=== PATIENT | female | born 1970 | race Caucasian/White ===

== ENCOUNTER → 2017-04-17 | Outpatient (CLI) | payer OTHER ==
[~2017-04-17] MED LIST: ALPR.25 PO; HYDR-3516 PO; NAPR500 PO; OMEP20TA93 PO; OXYGENDME NAS.CANULA; XARE15TA PO; XARE20TA PO
[2017-04-17 10:58] LABS: AUTOMATED NEUTROPHIL # 3.8 TH/MM3 (1.8-7.7); BASOPHIL % 0.6 % (0.0-2.0); EOSINOPHIL # 0.1 TH/MM3 (0-0.4); EOSINOPHIL % 1.1 % (0.0-4.0); HEMATOCRIT 40.5 % (35.0-46.0); HEMO FLAGS DIFF FINAL; LYMPH % 29.4 % (9.0-44.0); LYMPHOCYTE # 1.8 TH/MM3 (1.0-4.8); MEAN CELL VOLUME 95.4 FL (80.0-100.0); MEAN CORPUSCULAR HEMOGLOBIN 32.6 PG (27.0-34.0); MEAN CORPUSCULAR HGB CONC 34.2 % (32.0-36.0); MONO % 6.7 % (0.0-8.0); NEUT % 62.2 % (16.0-70.0); PLATELET COUNT 190 TH/MM3 (150-450); RED BLOOD COUNT 4.25 MIL/MM3 (4.00-5.30); RED CELL DISTRIBUTION WIDTH 12.4 % (11.6-17.2); WHITE BLOOD COUNT 6.2 TH/MM3 (4.0-11.0)
[2017-04-17 10:59] LABS: BLOOD, URINE SMALL (NEG); GLUCOSE,URINE NEG (NEG); KETONE, URINE NEG (NEG); MUCUS URINE FEW /lpf (OCC); NITRITE,URINE NEG (NEG); PH, URINE 5.5 (5.0-8.5); SQUAMOUS EPITHELIAL CELL URINE 4 /hpf (0-5); URINE COLOR YELLOW (YELLW/STRAW)
[2017-04-17 11:12] LABS: ANION GAP 7 MEQ/L (5-15); BICARBONATE 26.4 MEQ/L (21.0-32.0); BLOOD UREA NITROGEN 21 MG/DL (7-18); CHLORIDE 106 MEQ/L (98-107); GLOMERULAR FILTRATION RATE 89 ML/MIN (>89); GLUCOSE,FASTING 87 MG/DL (74-99); SODIUM (NA) 139 MEQ/L (136-145)
[2017-04-17 11:32] LABS: BHCG SCREEN QUALITATIVE LESS THAN 1 MIU/ML (0-5)
== END ==
LOC: CPRE 09:44
PROVIDERS: ATTEND Obstetrics & Gynecology
DX: Z01.812 Encounter for preprocedural laboratory examination (principal); N92.0 Excessive and frequent menstruation with regular cycle
CPT/HCPCS: 36415; 80048; 81001; 84703; 85025

== ENCOUNTER → 2017-04-23 | Day surgery (SDC) | payer OTHER ==
[~2017-04-23] VITALS: Ht 163.8 cm; Wt 73.5 kg
[~2017-04-23] MED LIST changes: +*morphine SULFATE 8 MG/ML PERIprocedure ONLY ONE; +ACETAMINOPHEN 1000 MG/100 ML 100 ML IV ONE; -ALPR.25 PO; +APREPITANT 40 MG CAP ONE; +BUPIVACAINE/EPINEPHRINE 0.25% PF 30 ML VIAL ONE; +CHLORHEXIDINE GLUCONATE 2 % 1 PACK (2 CLOTHS) TOPICAL PRN; +DEXAMETHASONE SOD PHOS 4 MG/ML VIAL IV ONE; +DO NOT ADM ANY ANTICOAGULANT DRUGS PRN; +ESTROGENS CONJUGATED VAG CREA 15 APPL/30 GM TUBE ONE; +FAMOTIDINE 20 MG/2 ML VIAL ONE; +GLYCOPYRROLATE 1 MG/5 ML SYRINGE IV PUSH ONE; -HYDR-3516 PO; +INSULIN HUMAN REGULAR 1,000 UNITS/10 ML VIAL SQ PRN; +KETOROLAC TROMETHAMINE 30 MG/ML (IVP) VIAL IV PUSH ONE; +KETOROLAC TROMETHAMINE 60 MG/2 ML (IM) VIAL IM PRN; +LACTATED RINGER'S 1000 ML INJ 1,000 ML IV ONE; +LACTATED RINGER'S 1000 ML IV PRN; +LIDOCAINE HCL 1% PF 5 ML SYRINGE OTHER ONE; +METOPROLOL TARTRATE 25 MG TAB PO PRN; +MIDAZOLAM HCL 2 MG/2 ML VIAL IV ONE; +MORPHINE SULFATE 4 MG/ML INJ IV ONE; +NEOSTIGMINE 3 MG/3 ML SYR IV ONE; +ONDANSETRON HCL 4 MG/2 ML VIAL IV ONE; +ONDANSETRON HCL 4 MG/2 ML VIAL IV PUSH PRN; -OXYGENDME NAS.CANULA; +PHENYLEPH/NS 1000 MCG/10 ML SYR IV ONE; +POVIDONE IODINE 5% (ANTISEPSIS KIT) 4 APPLICATIONS EACH NARE PRN; +PROPOFOL 200 MG/20 ML AMP IV ONE; +ROCURONIUM INJ 50 MG/5 ML SYRINGE IV PUSH ONE; +SODIUM CHLORID 0.9% 500 ML IV PRN; -XARE15TA PO; -XARE20TA PO; +ceFAZolin 2 GM PREMIX 50 ML IV SCH; +ePHEDrine/NS 25 MG/5 ML SYR IV ONE; +oxyCODONE/ACETAMINOPHEN 5 MG/325 MG TAB PO PRN
--- NOTE | 2017-04-23 10:32 | MP ---
cc: CHANELL IBARRA DATE OF SURGERY 04/23/2017 PREOPERATIVE DIAGNOSIS Menorrhagia POSTOPERATIVE DIAGNOSIS Menorrhagia PROCEDURE Examination under anesthesia, laparoscopic-assisted vaginal hysterectomy, bilateral salpingectomy, cystoscopy. SURGEON Dr. Ibarra ANESTHESIA General endotracheal anesthesia. FLUIDS 1600 cc crystalloid ESTIMATED BLOOD LOSS 50 cc URINE OUTPUT 300 cc clear at the end of the procedure. FINDINGS A slightly enlarged uterus was noted, normal bilateral fallopian tubes, normal bilateral ovaries. PROCEDURE The patient was taken to the operating room where general anesthesia was found to be adequate. She was then prepped and draped in the normal sterile fashion in the dorsal lithotomy position. A Thomas catheter was inserted into the urinary bladder using sterile technique. A weighted speculum was placed in the vagina. A single-tooth tenaculum applied to the anterior lip of the cervix. The cervix was then dilated with Michael dilators sizes 9-14. The tenaculum was replaced with a suture and a medium V-Care uterine manipulator was then placed through the cervix. The balloon was inflated. The cups were positioned. The speculum was removed. The gloves were changed and attention was turned to the abdominal portion of the procedure. A 5-mm incision was made just above the umbilicus and a 5-mm trocar and camera were inserted into the abdomen under direct visualization. The abdomen was insufflated with approximately 3-1/2 liters of CO2 gas. 5 mm incisions were then made in the right and left lower quadrants and 5 mm trocars were inserted under direct visualization. The round ligaments were transected bilaterally with the Harmonic scalpel. The bladder was dissected off the anterior surface of the uterus and cervix using the harmonic scalpel. The fallopian tubes were transected from the broad ligaments using the harmonic scalpel bilaterally. The remaining cardinal ligaments and uterine arteries were transected bilaterally using the harmonic scalpel down to the level of the cervix. The V-Care was then used as a guide to incise the vaginal mucosa circumferentially using the harmonic scalpel. The cervix, uterus and fallopian tubes were removed vaginally. The hemostasis was noted from all of the pedicles. The pelvis was suctioned. The gas was allowed to escape. The trocars were removed. The vaginal cuff was closed in a running fashion with 0 Vicryl, vaginally. The skin incisions were closed by the assistant drafter using 4-0 Monocryl. The Thomas catheter was used to instill approximately 250 cc of saline into the urinary bladder. The Thomas catheter was removed. Cystoscopy was performed. Urine was noted to be effluxing from both of the ureteral meatuses and no bladder injury was noted. The cystoscope was removed. The Thomas catheter was replaced. The urine was noted to be slightly blood tinged, but clear and approximately 300 cc. The sponge, lap, needle and instrument counts were correct. The patient was awakened from anesthesia and transferred to the recovery room in stable condition. Pathology was uterus, cervix and bilateral fallopian tubes. MD LIBORIO Myers/BIANCA /10:11 AM /10:32 AM MTDBrenna
[2017-04-23 13:30] VITALS: BP 114/66; PULSE 79; RESP 16; TEMP 98; O2SAT 97
== END | disposition home or self-care (01) ==
LOC: HSDC 06:06
PROVIDERS: ATTEND Obstetrics & Gynecology
DX: N80.0 Endometriosis of uterus (principal); N92.0 Excessive and frequent menstruation with regular cycle; N72 Inflammatory disease of cervix uteri; N88.8 Other specified noninflammatory disorders of cervix uteri
CPT/HCPCS: 00840; 58552; 86850; 86900; 86901; 88307; J0131; J0690; J1100; J1885; J2250; J2270; J2370; J2405; J2710; J3010; J7120; J8501

== ENCOUNTER 2017-04-30 01:11 | Observation (INO) | payer OTHER ==
[2017-04-30] VITALS (8 sets, daily range): BP systolic 109–121; BP diastolic 61–79; PULSE 100–115; RESP 15–18; TEMP 96.7–99.5; O2SAT 95–99
[~2017-04-30] VITALS: Ht 167.6 cm; Wt 55.0 kg
[~2017-04-30 01:11] MED LIST changes: -*morphine SULFATE 8 MG/ML PERIprocedure ONLY ONE; -ACETAMINOPHEN 1000 MG/100 ML 100 ML IV ONE; -APREPITANT 40 MG CAP ONE; -BUPIVACAINE/EPINEPHRINE 0.25% PF 30 ML VIAL ONE; -CHLORHEXIDINE GLUCONATE 2 % 1 PACK (2 CLOTHS) TOPICAL PRN; -DEXAMETHASONE SOD PHOS 4 MG/ML VIAL IV ONE; -DO NOT ADM ANY ANTICOAGULANT DRUGS PRN; -ESTROGENS CONJUGATED VAG CREA 15 APPL/30 GM TUBE ONE; -FAMOTIDINE 20 MG/2 ML VIAL ONE; -GLYCOPYRROLATE 1 MG/5 ML SYRINGE IV PUSH ONE; -INSULIN HUMAN REGULAR 1,000 UNITS/10 ML VIAL SQ PRN; -KETOROLAC TROMETHAMINE 30 MG/ML (IVP) VIAL IV PUSH ONE; -KETOROLAC TROMETHAMINE 60 MG/2 ML (IM) VIAL IM PRN; -LACTATED RINGER'S 1000 ML INJ 1,000 ML IV ONE; -LACTATED RINGER'S 1000 ML IV PRN; -LIDOCAINE HCL 1% PF 5 ML SYRINGE OTHER ONE; -METOPROLOL TARTRATE 25 MG TAB PO PRN; -MIDAZOLAM HCL 2 MG/2 ML VIAL IV ONE; -MORPHINE SULFATE 4 MG/ML INJ IV ONE; -NEOSTIGMINE 3 MG/3 ML SYR IV ONE; -ONDANSETRON HCL 4 MG/2 ML VIAL IV ONE; -ONDANSETRON HCL 4 MG/2 ML VIAL IV PUSH PRN; -PHENYLEPH/NS 1000 MCG/10 ML SYR IV ONE; -POVIDONE IODINE 5% (ANTISEPSIS KIT) 4 APPLICATIONS EACH NARE PRN; -PROPOFOL 200 MG/20 ML AMP IV ONE; -ROCURONIUM INJ 50 MG/5 ML SYRINGE IV PUSH ONE; -SODIUM CHLORID 0.9% 500 ML IV PRN; -ceFAZolin 2 GM PREMIX 50 ML IV SCH; -ePHEDrine/NS 25 MG/5 ML SYR IV ONE; -oxyCODONE/ACETAMINOPHEN 5 MG/325 MG TAB PO PRN
[2017-04-30] MEDS ORDERED: ACETAMINOPHEN/HYDROcodone 325 MG/5 MG TAB PO PRN (02:45)
[2017-04-30] MEDS: ALPRAZolam 0.25 MG TAB PO PRN ×2 (03:31→13:58)
--- NOTE | 2017-04-30 08:59 | HHI.HP ---
HPI Service CP Hospitalists Primary Care Physician Non-Staff Admission Diagnosis Chief Complaint: Shortness of breath and cough 2 days Travel History International Travel<30 Days: No Contact w/Intl Traveler <30 Da: No Traveled to Known Affected Are: No History of Present Illness This a 47-year-old female patient with past medical history which includes menorrhagia status post laparoscopic-assisted vaginal hysterectomy with bilateral oophorectomy and cystoscopy on 03/23/[address] Ibarra. Patient does endorse feeling weak and has had limited activity after the surgery. Patient reports approximately 2 days ago she began to have shortness of breath and cough. Patient also reports associated sharp/spasm like sensation with deep breathing. She denies any lower extremity swelling. She denies history of pulmonary embolism or DVT on herself or her family. Patient also denies estrogen or hormone supplementation. CT angiogram chest reveals pulmonary embolism isolated in the right lower lobe pulmonary artery. Small left-sided effusion with bibasilar atelectatic changes. Patient denies fevers, N/V/D/C. Patient does report, "leakage," from vagina post operation. Review of Systems Constitutional: COMPLAINS OF: Fatigue, Chills, DENIES: Fever Eyes: DENIES: Blurred vision, Diplopia, Vision loss Respiratory: COMPLAINS OF: Cough, Shortness of breath, DENIES: Sputum production Cardiovascular: COMPLAINS OF: Chest pain, DENIES: Dyspnea on Exertion, Lower Extremity Edema Gastrointestinal: DENIES: Abdominal pain, Constipation, Diarrhea Genitourinary: COMPLAINS OF: Vaginal discharge Neurologic: DENIES: Abnormal gait, Headache, Localized weakness, Speech Problems Psychiatric: DENIES: Anxiety, Confusion, Depression Past Family Social History Past Medical History Menorrhagia Past Surgical History laparoscopic-assisted vaginal hysterectomy with bilateral oophorectomy and cystoscopy on 03/23/[address] Ibarra Reported Medications Omeprazole 20 Mg Tab 20 Mg PO DAILY Naprosyn (Naproxen) 500 Mg Tab 500 Mg PO BID PRN Allergies: Coded Allergies: codeine (Verified Adverse Reaction, Severe, NAUSEA, 04/29/17) Active Ordered Medications Current Medications Medications (Trade) Dose Ordered Sig/Lou Route Start Time Stop Time Status Last Admin (Xanax) 0.25 mg Q8H PRN PO 04/30/17 02:45 04/30/17 03:31 (Whitakers 5-325 Mg) 1 tab Q6H PRN PO 04/30/17 02:45 04/30/17 03:31 (Xarelto) 15 mg BID PO 04/30/17 10:00 Family History Mother has COPD Father has hypertension Social History Patient reports occasional social EtOH use Denies tobacco use Denies illicit drug use Physical Exam Vital Signs Vital Signs Date Time Temp Pulse Resp B/P (MAP) Pulse Ox O2 Delivery O2 Flow Rate FiO2 04/30/17 08:20 97 Nasal Cannula 04/30/17 04:31 18 04/30/17 04:00 98.0 115 16 110/61 (77) 96 04/30/17 03:30 94 Nasal Cannula 2.00 04/30/17 01:30 98.4 101 15 120/76 (91) 96 Physical Exam GENERAL: This is a well-nourished, well-developed patient, appears short of breath at rest and with conversation SKIN: No rashes, ecchymoses or lesions. Cool and dry. Postop laparoscopic incisions on the abdomen healing well no drainage or erythema present HEAD: Atraumatic. Normocephalic. No temporal or scalp tenderness. EYES:Extraocular motions intact. No scleral icterus. No injection or drainage. CARDIOVASCULAR: tachycardic RESPIRATORY: Clear to auscultation. Breath sounds equal bilaterally GASTROINTESTINAL: Abdomen soft, non-tender, nondistended. MUSCULOSKELETAL: Extremities without clubbing, cyanosis, or edema. No joint tenderness, effusion, or edema noted. No calf tenderness. Negative Homans sign bilaterally. NEUROLOGICAL: Awake and alert. No focal deficits appreciated. Motor and sensory grossly within normal limits. Five out of 5 muscle strength in all muscle groups. Normal speech. Imaging Last Impressions Lower Extremity Ultrasound 04/30/17 0000 Signed Impressions: Service Date/Time: Sunday, April 30, 2017 08:58 - CONCLUSION: Normal examination. Brayan Diggs MD Capmacieli VTE Risk Assessment Caprini VTE Risk Assessment: Mod/High Risk (score >= 2) Caprini Risk Assessment Model Point Value = 1 Point Value = 2 Point Value = 3 Point Value = 5 Age 41-60 Minor surgery BMI > 25 kg/m2 Swollen legs Varicose veins or History of unexplained or recurrent spontaneous Oral contraceptives or hormone replacement Sepsis (< 1 month) Serious lung disease, including pneumonia (< 1 month) Abnormal pulmonary function Acute myocardial infarction Congestive heart failure (< 1 month) History of inflammatory bowel disease Medical patient at bed rest Age 61-74 Arthroscopic surgery Major open surgery (> 45 min) Laparoscopic surgery (> 45 min) Malignancy Confined to bed (> 72 hours) Immobilizing plaster cast Central venous access Age >= 75 History of VTE Family history of VTE Factor V Leiden Prothrombin [id number] Lupus anticoagulant Anticardiolipin antibodies Elevated serum homocysteine Heparin-induced thrombocytopenia Other congenital or acquired thrombophilia Stroke (< 1 month) Elective arthroplasty Hip, pelvis, or leg fracture Acute spinal cord injury (< 1 month) Prophylaxis Regimen Total Risk Factor Score Risk Level Prophylaxis Regimen 0-1 Low Early ambulation 2 Moderate Order ONE of the following: *Sequential Compression Device (SCD) *Heparin 5000 units SQ BID 3-4 Higher Order ONE of the following medications: *Heparin 5000 units SQ TID *Enoxaparin/Lovenox 40 mg SQ daily (WT < 150 kg, CrCl > 30 mL/min) *Enoxaparin/Lovenox 30 mg SQ daily (WT < 150 kg, CrCl > 10-29 mL/min) *Enoxaparin/Lovenox 30 mg SQ BID (WT < 150 kg, CrCl > 30 mL/min) AND/OR *Sequential Compression Device (SCD) 5 or more Highest Order ONE of the following medications: *Heparin 5000 units SQ TID (Preferred with Epidurals) *Enoxaparin/Lovenox 40 mg SQ daily (WT < 150 kg, CrCl > 30 mL/min) *Enoxaparin/Lovenox 30 mg SQ daily (WT < 150 kg, CrCl > 10-29 mL/min) *Enoxaparin/Lovenox 30 mg SQ BID (WT < 150 kg, CrCl > 30 mL/min) AND *Sequential Compression Device (SCD) Assessment and Plan Problem List: (1) Pulmonary embolism ICD Codes: I26.99 - Other pulmonary embolism without acute cor pulmonale Plan: Pulmonary embolism - This a 47-year-old female patient with past medical history which includes menorrhagia status post laparoscopic-assisted vaginal hysterectomy with bilateral oophorectomy and cystoscopy on 03/23/[address] Ibarra. Patient reports she was recovering well until approximately 2 days ago when she began to have shortness of breath and cough. Patient reports persistent dry cough and shortness of breath at rest for the past two days with associated pleuritic chest pain on the left more than the right. She denies any lower extremity swelling. She has no history of pulmonary embolism or DVT. - CT angiogram chest reveals pulmonary embolism isolated in the right lower lobe pulmonary artery. Small left-sided effusion with bibasilar atelectatic changes. - Patient started on Xarelto 15 mg by mouth twice a day - Bilateral lower extremity ultrasound reviewed normal exam - 2-D echocardiogram ordered to evaluate for right heart strain - IS q1h - supplemental oxygen as needed DVT prophylaxis patient is on Xarelto Assessment and Plan Patient examined. Assessment and plan formulated with Brina Cao PA-C. I agree with the above. right lung pe's after hysterectomy. presumed provoked from immobility. given lovenox then xarelto. f/u u/s legs inc spirometer. pain control. wean oxygen. notify post commander. probably at least 3-6months rx and then decide on stopping and check hypercoag panel at that time as needed per pcp. reviewed images, diagnosis and plan with pt and Brina Olmstead Apr 30, 2017 08:59 Austin Diggs MD Apr 30, 2017 11:16
--- NOTE | 2017-04-30 09:42 | RADRPT ---
EXAM DATE/TIME: 04/30/2017 08:58 [facility] COMPARISON: No previous studies available for comparison. INDICATIONS : Pulmonary embolism. MEDICAL HISTORY : Hypercholesterolemia. Gastroesophageal reflux disease. Hiatal hernia. Anticoagulant therapy, Xarelto . SURGICAL HISTORY : section. Partial hysterectomy. Breast augmentation. Dilation and curettage. ENCOUNTER: Initial ACUITY: 2 day PAIN SCORE: 5/10 LOCATION: Bilateral legs. TECHNIQUE: Venous ultrasound of the left and right leg was performed from the inguinal ligament to the proximal calf. Real-time, color Doppler and spectral tracing, compression and augmentation techniques were us ed. FINDINGS: RIGHT LEG: There is normal compressibility of the deep venous system from the inguinal region to the proximal ca lf. No echogenic clot is seen in the lumen of the common femoral, femoral, popliteal, and posterior tibial veins. There is a normal response of the venous system to proximal and distal augmentation an d respiration. LEFT LEG: There is normal compressibility of the deep venous system from the inguinal region to the proximal ca lf. No echogenic clot is seen in the lumen of the common femoral, femoral, popliteal, and posterior tibial veins. There is a normal response of the venous system to proximal and distal augmentation an d respiration. CONCLUSION: Normal examination. Brayan Diggs MD on April 30, 2017 at 9:40 Board Certified Radiologist. This report was verified electronically.
[2017-04-30] MEDS: RIVAROXABAN 15 MG TAB PO SCH ×2 (09:53→21:01)
[2017-04-30] MEDS ORDERED: ALUMINUM/MAGNESIUM/SIMETH 30 ML CUP PO PRN (10:15)
--- NOTE | 2017-04-30 11:26 | MB ---
cc: CHANELL HERNANDEZ DATE OF CONSULTATION 04/30/2017 REASON FOR CONSULTATION This is a 47-year-old 1 para 1 who presented to the [facility] emergency room with a two day history of chest pain and cough. The patient is status post a laparoscopic assisted vaginal hysterectomy on 04/23/2017. The patient had been on oral contraceptives prior to that for heavy menstrual bleeding. The patient was found on presentation to have a pulmonary embolus on CT angiogram and has been started on Xarelto. PAST OB HISTORY Significant for one section. 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 PAST MEDICAL HISTORY She denies hypertension, diabetes or asthma. She does have a history of a hernia. PAST SURGICAL HISTORY Significant for recent: 1. Laparoscopic assisted vaginal hysterectomy. 2. section 3. D&C 4. Laminectomy SOCIAL HISTORY She denies toxic habits. MEDICATIONS She had stopped taking her postoperative pain medication. Previously had been taking Naproxen and Omeprazole. ALLERGIES SHE IS ALLERGIC TO CODEINE, IT CAUSES NAUSEA. FAMILY HISTORY Significant for COPD. PHYSICAL EXAM Her vital signs are stable. She is afebrile. HEAD, HEART, CHEST AND LUNGS: Clear to auscultation. ABDOMEN: Soft, nontender, nondistended. Her laparoscopy incisions are clean, dry and intact. PELVIC: Exam is deferred at this time. EXTREMITIES: She has no calf tenderness. No swelling. No warmth or redness. ASSESSMENT AND PLAN She is a 47-year-old 1 para 1 status post laparoscopic assisted vaginal hysterectomy on 04/23/2017 who presented to the emergency room yesterday with shortness of breath and chest pain found to have a pulmonary embolism. She has been admitted to the [facility] for anticoagulation. She has been started on Xarelto. Her hematocrit and hemoglobin are stable. She was complaining of some dysuria, so a UA C&S has been ordered. Thank you for this consultation. MD LIBORIO Myers/BIANCA /11:06 AM /11:10 AM
[2017-04-30] MEDS: PANTOPRAZOLE SODIUM 40 MG VIAL IV PUSH SCH (13:53)
[2017-04-30] MEDS: ACETAMINOPHEN/HYDROcodone 325 MG/5 MG TAB PO PRN (13:58)
[2017-04-30 14:55] LABS: BLOOD, URINE SMALL (NEG); COMMENT (UR) CULT NOT INDICATED; CULTURE IF INDICATED CULT NOT INDICATED; GLUCOSE,URINE NEG (NEG); KETONE, URINE NEG (NEG); MUCUS URINE FEW /lpf (OCC); NITRITE,URINE NEG (NEG); PH, URINE 6.5 (5.0-8.5); SQUAMOUS EPITHELIAL CELL URINE 1 /hpf (0-5); URINE COLOR YELLOW (YELLW/STRAW)
[2017-05-01] MEDS: ACETAMINOPHEN/HYDROcodone 325 MG/5 MG TAB PO PRN ×2 (00:27→13:07)
[2017-05-01 05:15] VITALS: BP 119/82; PULSE 88; RESP 18; TEMP 97.1; O2SAT 95
[2017-05-01 08:00] VITALS: BP 125/74; PULSE 90; RESP 18; TEMP 97.2; O2SAT 96
[2017-05-01] MEDS: RIVAROXABAN 15 MG TAB PO SCH ×2 (09:14→18:19)
--- NOTE | 2017-05-01 11:16 | HHI.PR ---
Subjective Remarks pt breathing easier. has periods where she would feel more sob. ambulated in hallway yesterday with PT. Objective Vitals heart reg lung air movement bilaterally abd s/nt ext no pitting. Vital Signs Date Time Temp Pulse Resp B/P (MAP) Pulse Ox O2 Delivery O2 Flow Rate FiO2 05/01/17 08:00 97.2 90 18 125/74 (91) 96 05/01/17 05:15 97.1 88 18 119/82 (94) 95 04/30/17 23:13 99.5 113 17 116/76 (89) 97 04/30/17 19:05 98.7 106 18 121/79 (93) 96 04/30/17 18:56 Nasal Cannula 2.00 04/30/17 17:06 97.9 104 16 118/69 (85) 95 04/30/17 12:00 98 Room Air 04/30/17 12:00 96.7 105 18 112/73 (86) 98 Imaging Last Impressions Lower Extremity Ultrasound 04/30/17 0000 Signed Impressions: Service Date/Time: Sunday, April 30, 2017 08:58 - CONCLUSION: Normal examination. Brayan Diggs MD A/P Problem List: (1) Pulmonary embolism ICD Codes: I26.99 - Other pulmonary embolism without acute cor pulmonale Status: Acute Plan: Pulmonary embolism - This a 47-year-old female patient with past medical history which includes menorrhagia status post laparoscopic-assisted vaginal hysterectomy with bilateral oophorectomy and cystoscopy on 03/23/[address] Ibarra. Patient reports she was recovering well until approximately 2 days ago when she began to have shortness of breath and cough. Patient reports persistent dry cough and shortness of breath at rest for the past two days with associated pleuritic chest pain on the left more than the right. She denies any lower extremity swelling. She has no history of pulmonary embolism or DVT. - CT angiogram chest reveals pulmonary embolism isolated in the right lower lobe pulmonary artery. Small left-sided effusion with bibasilar atelectatic changes. - Patient started on Xarelto 15 mg by mouth twice a day - Bilateral lower extremity ultrasound reviewed normal exam - 2-D echocardiogram ordered to evaluate for right heart strain - IS q1h - supplemental oxygen as needed Long discussion with pt. The PE seems provoked by immobility and/or surgery. She should remain on the xarelto for 6months and at that time she and her doctor can decide on stopping it. Doubt a hypercoagulable d/o but that can be ordered by pcp once the medication is stopped. will check walk test today to see if home o2 needed. cont IS at home. prn pain meds for now. will call her pcp and give this info and have close f/u. ADDENDUM: I SPOKE TO DR GARRISON'S MEDICAL STAFF AND INFORMED THEM OF HER DIAGNOSIS AND TREATMENT PLAN. I REQUESTED THEY CALL HER AND GET A F/U APPT IN NEXT 1 WEEK. I GAVE MY CONTACT NUMBER HERE AT [facility] FOR QUESTIONS. WILL GIVE PT COPY OF HER CTA. Austin Diggs MD May 01, 2017 11:16
--- NOTE | 2017-05-01 11:26 | HHI.DCPOC ---
Discharge Care Plan Diagnosis: (1) Pulmonary embolism Goals to Promote Your Health * To prevent worsening of your condition and complications * To maintain your health at the optimal level Directions to Meet Your Goals Take your medications as prescribed Follow your dietary instruction Follow activity as directed Keep your appointments as scheduled Take your immunizations and boosters as scheduled If your symptoms worsen call your PCP, if no PCP go to Urgent Care Center or Emergency Room Smoking is Dangerous to Your Health. Avoid second hand smoke Call the 24-hour hour crisis hotline for domestic abuse at Austin Diggs MD May 01, 2017 11:26
[2017-05-01] MEDS ORDERED: ALPR.25 PO (11:27)
[2017-05-01] MEDS ORDERED: HYDR-3516 PO (11:27)
[2017-05-01] MEDS ORDERED: XARE15TA PO (11:31)
[2017-05-01] MEDS ORDERED: XARE20TA PO (11:31)
[2017-05-01 11:51] VITALS: O2SAT 96
[2017-05-01 12:00] VITALS: BP 121/92; PULSE 100; RESP 19; TEMP 97.2; O2SAT 94
[2017-05-01] MEDS ORDERED: OXYGENDME NAS.CANULA (12:58)
[2017-05-01] MEDS: PANTOPRAZOLE SODIUM 40 MG VIAL IV PUSH SCH (13:06)
--- NOTE | 2017-05-01 13:49 | ECHRPT ---
Indication: SOB CONCLUSIONS Normal left ventricular size. Wall thickness is normal. The left ventricular systolic function is low normal with an estimated ejection fraction in the rang e of 50- 55%. Trace mitral valve regurgitation. BP: 109 / 67 HR: 100 Rhythm: MEASUREMENTS (Male / Female) Normal Values Technical Quality:Fair 2D ECHO LV Diastolic Diameter PLAX 4.5 cm 4.2 - 5.9 / 3.9 - 5.3 cm LV Systolic Diameter PLAX 3.5 cm IVS Diastolic Thickness 1.0 cm 0.6 - 1.0 / 0.6 - 0.9 cm LVPW Diastolic Thickness 0.7 cm 0.6 - 1.0 / 0.6 - 0.9 cm LV Relative Wall Thickness 0.4 RV Internal Dim ED PLAX 2.5 cm LA Systolic Diameter LX 3.3 cm 3.0 - 4.0 / 2.7 - 3.8 cm M-MODE Aortic Root Diameter MM 2.8 cm AV Cusp Separation MM 1.8 cm DOPPLER Mitral E Point Velocity 74.0 cm/s Mitral A Point Velocity 88.4 cm/s Mitral E to A Ratio 0.8 TR Peak Velocity 349.0 cm/s TR Peak Gradient 48.7 mmHg FINDINGS LEFT VENTRICLE Normal left ventricular size. Wall thickness is normal. The left ventricular systolic function is low normal with an estimated ejection fraction in the rang e of 50- 55%. RIGHT VENTRICLE Normal right ventricular size and systolic function. LEFT ATRIUM The left atrial size is normal. RIGHT ATRIUM The right atrial size is normal. ATRIAL SEPTUM Normal atrial septal thickness without atrial level shunting by limited color doppler interrogation. AORTA The aortic root and proximal ascending aorta are normal in size on limited imaging. MITRAL VALVE Trace mitral valve regurgitation. AORTIC VALVE Trileaflet aortic valve. No aortic valve stenosis or regurgitation. TRICUSPID VALVE Structurally normal tricuspid valve. No tricuspid valve stenosis or regurgitation. PULMONARY VALVE The pulmonary valve is not well visualized. VESSELS The inferior vena cava is normal in size. PERICARDIUM No pericardial effusion. Ezequiel Panchal MD, FACC, [id number] (Electronically Signed) Final Date:01 May 2017 13:48
[2017-05-01 15:23] VITALS: BP 123/79; PULSE 96; RESP 20; TEMP 97; O2SAT 96
== END 2017-05-01 18:36 | disposition home or self-care (01) ==
LOC: NEDDLT 01:11 → N06B 01:21 → INTOOBSV 01:21
PROVIDERS: ADMIT Hospitalist; ATTEND Hospitalist
DX: I26.99 Other pulmonary embolism without acute cor pulmonale (principal); R53.1 Weakness; R30.0 Dysuria; Z79.01 Long term (current) use of anticoagulants; Z90.710 Acquired absence of both cervix and uterus
CPT/HCPCS: 71010; 71275; 80053; 81001; 83735; 84484; 85025; 85610; 85730; 93005; 93306; 93970; 94150; 94620; 96361; 96372; 96374; 96376; 97162; 99285; C9113; G0378; G8987; G8988; J0696; J1650; J7040; Q9967

== ENCOUNTER 2017-05-05 19:15 | Observation (INO) | payer OTHER ==
[~2017-05-05] VITALS: Ht 162.6 cm; Wt 70.0 kg
[~2017-05-05 19:15] MED LIST changes: +ALPR.25 PO; +HYDR-3516 PO; -NAPR500 PO; +OXYGENDME NAS.CANULA; +XARE15TA PO; +XARE20TA PO
[2017-05-05 19:18] VITALS: BP 150/94; PULSE 88; RESP 16; TEMP 98.9; O2SAT 98
--- NOTE | 2017-05-05 21:07 | PD ---
HPI Chief Complaint: Bleeding Time Seen by Provider: 20:57 Travel History International Travel<30 days: No Contact w/Intl Traveler<30days: No Traveled to known affect area: No History of Present Illness HPI This is a 47-year-old female who underwent hysterectomy on April 23. She was diagnosed with pulmonary embolism on April 29. She was started on Xarelto. She has been having light vaginal bleeding ever since the surgery. This morning the bleeding became worse which prompted evaluation. She reports that she has been having vaginal bleeding, passing of clots, throughout the day. She has used approximately 30 pads today. She endorses some weakness and fatigue, shortness of breath. Denies any abdominal pain, fevers or chills, flank pain, nausea or vomiting. She has no other complaints at this time. PFSH Past Medical History Heart Rhythm Problems: No Cancer: No Cardiovascular Problems: No High Cholesterol: Yes Chest Pain: No Congestive Heart Failure: No Diabetes: No Diminished Hearing: No Endocrine: No Gastrointestinal Disorders: Yes GERD: Yes Genitourinary: No Hepatitis: No Hiatal Hernia: Yes Immune Disorder: No Musculoskeletal: No Neurologic: No Psychiatric: No Reproductive: Yes (BLEEDING) Respiratory: No Immunizations Current: Yes Thyroid Disease: No Ulcer: No ?: Not Dilation and Curettage (D&C): Yes Past Surgical History Abdominal Surgery: Yes (LAP PARTIAL HYSTERECTOMY) AICD: No Body Medical Devices: BREAST IMPLANTS Cardiac Surgery: No Section: Yes Ear Surgery: No Endocrine Surgery: No Eye Surgery: No Genitourinary Surgery: No Gynecologic Surgery: Yes (, BREAST AUGMENTATION) Hysterectomy: Yes (PARTIAL) Joint Replacement: No Oral Surgery: Yes (WISDOM TEETH X 4) Pacemaker: No Thoracic Surgery: No Social History Alcohol Use: No Tobacco Use: No Substance Use: No Allergies-Medications (Allergen,Severity, Reaction): Coded Allergies: codeine (Verified Adverse Reaction, Severe, NAUSEA, 05/05/17) Reported Meds & Prescriptions Reported Meds & Active Scripts Active Oxygen (O2) Device Liter LEEANNE.CANULA CONTINUOUS Oxygen Concentrator Portable Gaseous 2 L/min via Nasal Canula Continuous For 99 months Xarelto (Rivaroxaban) 20 Mg Tab 20 Mg PO DAILY Start after completing 20 days of xarelto 15mg po bid Xarelto (Rivaroxaban) 15 Mg Tab 15 Mg PO BID 20 Days Hydrocodone-Acetamin 5-325 mg (Hydrocodone/Acetaminophen) 5 Mg-325 Mg Tablet 1 Tab PO Q6HR PRN Xanax (Alprazolam) 0.25 Mg Tab 0.25 Mg PO BID PRN Reported Omeprazole 20 Mg Tab 20 Mg PO DAILY Review of Systems Except as stated in HPI: all other systems reviewed are Neg Physical Exam Narrative GENERAL: Well-nourished female in no acute distress SKIN: Warm and dry. Laparoscopic incision site noted on the abdominal wall. HEAD: Atraumatic. Normocephalic. EYES: Pupils equal and round. No scleral icterus. No injection or drainage. ENT: No nasal bleeding or discharge. Mucous membranes pink and moist. NECK: Trachea midline. No JVD. CARDIOVASCULAR: Regular rate and rhythm. No murmur appreciated. RESPIRATORY: No accessory muscle use. Clear to auscultation. Breath sounds equal bilaterally. GASTROINTESTINAL: Abdomen soft, non-tender, nondistended. Hepatic and splenic margins not palpable. MUSCULOSKELETAL: No obvious deformities. No clubbing. No cyanosis. No edema. NEUROLOGICAL: Awake and alert. No obvious cranial nerve deficits. Motor grossly within normal limits. Normal speech. PSYCHIATRIC: Appropriate mood and affect; insight and judgment normal. Data Data Last Documented VS Vital Signs Date Time Temp Pulse Resp B/P (MAP) Pulse Ox O2 Delivery O2 Flow Rate FiO2 05/05/17 21:10 77 24 100 Nasal Cannula 2.00 05/05/17 19:18 98.9 150/94 (112) Orders Orders Type And Screen (05/05/17 21:04) Complete Blood Count With Diff (05/05/17 21:04) Comprehensive Metabolic Panel (05/05/17 21:04) Act Partial Throm Time (Ptt) (05/05/17 21:04) Prothrombin Time / Inr (Pt) (05/05/17 21:04) Iv Access Insert/Monitor (05/05/17 21:04) Admit Order (Ed Use Only) (05/05/17 22:38) Consult Gynecology (05/05/17 ) Labs Laboratory Tests Test 05/05/17 21:20 White Blood Count 11.1 TH/MM3 Red Blood Count 3.96 MIL/MM3 Hemoglobin 12.6 GM/DL Hematocrit 37.3 % Mean Corpuscular Volume 94.1 FL Mean Corpuscular Hemoglobin 31.8 PG Mean Corpuscular Hemoglobin Concent 33.8 % Red Cell Distribution Width 12.6 % Platelet Count 271 TH/MM3 Mean Platelet Volume 8.7 FL Neutrophils (%) (Auto) 70.0 % Lymphocytes (%) (Auto) 22.4 % Monocytes (%) (Auto) 6.4 % Eosinophils (%) (Auto) 0.7 % Basophils (%) (Auto) 0.5 % Neutrophils # (Auto) 7.8 TH/MM3 Lymphocytes # (Auto) 2.5 TH/MM3 Monocytes # (Auto) 0.7 TH/MM3 Eosinophils # (Auto) 0.1 TH/MM3 Basophils # (Auto) 0.1 TH/MM3 CBC Comment DIFF FINAL Differential Comment Prothrombin Time 12.0 SEC Prothromb Time International Ratio 1.2 RATIO Activated Partial Thromboplast Time 37.9 SEC Blood Urea Nitrogen 24 MG/DL Creatinine 0.87 MG/DL Random Glucose 97 MG/DL Total Protein 8.3 GM/DL Albumin 3.4 GM/DL Calcium Level 9.0 MG/DL Alkaline Phosphatase 132 U/L Aspartate Amino Transf (AST/SGOT) 31 U/L Alanine Aminotransferase (ALT/SGPT) 26 U/L Total Bilirubin 0.2 MG/DL Sodium Level 137 MEQ/L Potassium Level 4.3 MEQ/L Chloride Level 102 MEQ/L Carbon Dioxide Level 26.8 MEQ/L Anion Gap 8 MEQ/L Estimat Glomerular Filtration Rate 69 ML/MIN MDM Medical Decision Making Medical Screen Exam Complete: Yes Emergency Medical Condition: Yes Medical Record Reviewed: Yes Differential Diagnosis Postoperative bleeding, hypercoagulopathy, critical anemia Narrative Course 47-year-old female who is recently placed on Xarelto secondary to pulmonary embolism, status post hysterectomy on April 23, presents with significantly worsening vaginal bleeding today. Her abdomen is soft and nontender. She is hemodynamically stable. Plan is for basic lab work. The patient's lab work has been reviewed. Her hemoglobin is 12.6 and transfusion would not be indicated. The patient is very concerned with the amount of vaginal bleeding that she has been experiencing today and does not feel comfortable going home. I discussed the case with her fire information officer Dr. Ibarra. The patient will be admitted to medicine and she will consult. Discussed the case with Dr. Roche who would like the patient admitted to Dr. Ortiz. Diagnosis Primary Impression: Excessive vaginal bleeding Admitting Information Admitting Physician Requests: Observation Yusuf Ayala May 05, 2017 21:07
--- NOTE | 2017-05-05 21:31 | PD ---
Data Data Last Documented VS Vital Signs Date Time Temp Pulse Resp B/P (MAP) Pulse Ox O2 Delivery O2 Flow Rate FiO2 05/05/17 21:10 77 24 100 Nasal Cannula 2.00 05/05/17 19:18 98.9 150/94 (112) Orders Orders Type And Screen (05/05/17 21:04) Complete Blood Count With Diff (05/05/17 21:04) Comprehensive Metabolic Panel (05/05/17 21:04) Act Partial Throm Time (Ptt) (05/05/17 21:04) Prothrombin Time / Inr (Pt) (05/05/17 21:04) Iv Access Insert/Monitor (05/05/17 21:04) Admit Order (Ed Use Only) (05/05/17 22:38) Consult Gynecology (05/05/17 ) Labs Laboratory Tests Test 05/05/17 21:20 White Blood Count 11.1 TH/MM3 Red Blood Count 3.96 MIL/MM3 Hemoglobin 12.6 GM/DL Hematocrit 37.3 % Mean Corpuscular Volume 94.1 FL Mean Corpuscular Hemoglobin 31.8 PG Mean Corpuscular Hemoglobin Concent 33.8 % Red Cell Distribution Width 12.6 % Platelet Count 271 TH/MM3 Mean Platelet Volume 8.7 FL Neutrophils (%) (Auto) 70.0 % Lymphocytes (%) (Auto) 22.4 % Monocytes (%) (Auto) 6.4 % Eosinophils (%) (Auto) 0.7 % Basophils (%) (Auto) 0.5 % Neutrophils # (Auto) 7.8 TH/MM3 Lymphocytes # (Auto) 2.5 TH/MM3 Monocytes # (Auto) 0.7 TH/MM3 Eosinophils # (Auto) 0.1 TH/MM3 Basophils # (Auto) 0.1 TH/MM3 CBC Comment DIFF FINAL Differential Comment Prothrombin Time 12.0 SEC Prothromb Time International Ratio 1.2 RATIO Activated Partial Thromboplast Time 37.9 SEC Blood Urea Nitrogen 24 MG/DL Creatinine 0.87 MG/DL Random Glucose 97 MG/DL Total Protein 8.3 GM/DL Albumin 3.4 GM/DL Calcium Level 9.0 MG/DL Alkaline Phosphatase 132 U/L Aspartate Amino Transf (AST/SGOT) 31 U/L Alanine Aminotransferase (ALT/SGPT) 26 U/L Total Bilirubin 0.2 MG/DL Sodium Level 137 MEQ/L Potassium Level 4.3 MEQ/L Chloride Level 102 MEQ/L Carbon Dioxide Level 26.8 MEQ/L Anion Gap 8 MEQ/L Estimat Glomerular Filtration Rate 69 ML/MIN MDM Supervised Visit with TEREZA: Yes Narrative Course I, Dr. Georges, have reviewed the advance practice practitioner's documentation and am in agreement, met with the patient face to face, made the diagnosis, and the medical decision making was done by me. *My assessment and Findings: Patient fairly anxious from her symptoms of bleeding while on Xarelto, she appears well hemodynamically stable and hemoglobin within normal limits. Patient was discussed with her INTERPRETIVE PROGRAM COORDINATOR by Yusuf Ayala, she recommends observation status to medicine, ultimately discussed with Dr. Albarran for admission. He is agreeable. Admitting Information Admitting Physician Requests: Observation Condition: Stable Jefry Georges MD May 05, 2017 21:31
[2017-05-05 21:58] LABS: AUTOMATED NEUTROPHIL # 7.8 TH/MM3 (1.8-7.7); BASOPHIL # 0.1 TH/MM3 (0-0.2); BASOPHIL % 0.5 % (0.0-2.0); EOSINOPHIL # 0.1 TH/MM3 (0-0.4); EOSINOPHIL % 0.7 % (0.0-4.0); HEMATOCRIT 37.3 % (35.0-46.0); HEMO FLAGS DIFF FINAL; LYMPH % 22.4 % (9.0-44.0); LYMPHOCYTE # 2.5 TH/MM3 (1.0-4.8); MEAN CELL VOLUME 94.1 FL (80.0-100.0); MEAN CORPUSCULAR HEMOGLOBIN 31.8 PG (27.0-34.0); MEAN CORPUSCULAR HGB CONC 33.8 % (32.0-36.0); MONO % 6.4 % (0.0-8.0); PLATELET COUNT 271 TH/MM3 (150-450); RED BLOOD COUNT 3.96 MIL/MM3 (4.00-5.30); RED CELL DISTRIBUTION WIDTH 12.6 % (11.6-17.2); WHITE BLOOD COUNT 11.1 TH/MM3 (4.0-11.0)
[2017-05-05 22:10] LABS: APTT (PATIENT) 37.9 SEC (24.3-30.1); INTERNATIONAL NORMALIZED RATIO 1.2 RATIO
[2017-05-05 22:15] LABS: ALT (GPT) 26 U/L (10-53)
[2017-05-05 22:16] LABS: ANION GAP 8 MEQ/L (5-15); AST (GOT) 31 U/L (15-37); BICARBONATE 26.8 MEQ/L (21.0-32.0); BLOOD UREA NITROGEN 24 MG/DL (7-18); CHLORIDE 102 MEQ/L (98-107); GLOMERULAR FILTRATION RATE 69 ML/MIN (>89); POTASSIUM 4.3 MEQ/L (3.5-5.1); SODIUM (NA) 137 MEQ/L (136-145)
[2017-05-05 22:17] LABS: ALKALINE PHOSPHATASE 132 U/L (45-117); TOTAL BILIRUBIN ADULT 0.2 MG/DL (0.2-1.0)
[2017-05-05 23:36] VITALS: BP 137/78; PULSE 89; RESP 18; O2SAT 98
[2017-05-06] VITALS (8 sets, daily range): BP systolic 111–132; BP diastolic 66–81; PULSE 77–102; RESP 16–18; TEMP 97.3–98.7; O2SAT 96–100
[2017-05-06] MEDS ORDERED: ACETAMINOPHEN/HYDROcodone 325 MG/5 MG TAB PO PRN
[2017-05-06] MEDS ORDERED: ALPRAZolam 0.25 MG TAB PO PRN
--- NOTE | 2017-05-06 00:03 | HHI.HP ---
HPI Service [facility] Hospitalists Primary Care Physician Non-Staff Admission Diagnosis vaginal bleeding Chief Complaint: vaginal bleeding with recent PE Travel History International Travel<30 Days: No Contact w/Intl Traveler <30 Da: No Traveled to Known Affected Are: No History of Present Illness This is a 47-year-old female who underwent hysterectomy on April 23,patient had been on oral contraceptives for bleeding and continued to have problem and underwent laproscopic vaginal hysterectomy. Patient went home and developed cough,SOB and chest pain . She was diagnosed with pulmonary embolism on April 29. She was started on Xarelto. Patient with exertion also had hypoxia and was started on oxygen 2 liters to be used with any exertion. She has been having light vaginal bleeding ever since the surgery. This morning the bleeding became worse which prompted evaluation. She reports that she has been having vaginal bleeding, passing of clots, throughout the day. She has used approximately 30 pads today. She endorses some weakness and fatigue, shortness of breath unsteadiness. Denies any abdominal pain, fevers or chills, flank pain, nausea or vomiting. She has no other complaints at this time. Denies any chest pain or shortness of breath. Patient will be admitted for observation. Review of Systems Constitutional: COMPLAINS OF: Fatigue Neurologic: COMPLAINS OF: Abnormal gait Other vaginal bleeding Past Family Social History Past Medical History hyperlipid,GERD,recent PE on Xarelto Past Surgical History back surgery,c section,d/c,breast augmentation Reported Medications Oxygen (O2) Device Liter LEEANNE.CANULA CONTINUOUS Oxygen Concentrator Portable Gaseous 2 L/min via Nasal Canula Continuous For 99 months Xarelto (Rivaroxaban) 20 Mg Tab 20 Mg PO DAILY Start after completing 20 days of xarelto 15mg po bid Xarelto (Rivaroxaban) 15 Mg Tab 15 Mg PO BID 20 Days Hydrocodone-Acetamin 5-325 mg (Hydrocodone/Acetaminophen) 5 Mg-325 Mg Tablet 1 Tab PO Q6HR PRN Xanax (Alprazolam) 0.25 Mg Tab 0.25 Mg PO BID PRN Reported Omeprazole 20 Mg Tab 20 Mg PO DAILY Allergies: Coded Allergies: codeine (Verified Adverse Reaction, Severe, NAUSEA, 05/05/17) Social History NS,ND Physical Exam Vital Signs Vital Signs Date Time Temp Pulse Resp B/P (MAP) Pulse Ox O2 Delivery O2 Flow Rate FiO2 05/05/17 23:36 89 18 137/78 (97) 98 Room Air 05/05/17 21:10 77 24 100 Nasal Cannula 2.00 05/05/17 19:18 98.9 88 16 150/94 (112) 98 Physical Exam GENERAL: This is a well-nourished, well-developed patient, in no apparent distress. SKIN: No rashes, ecchymoses or lesions. Cool and dry. HEAD: Atraumatic. Normocephalic. No temporal or scalp tenderness. EYES: Pupils equal round and reactive. Extraocular motions intact. No scleral icterus. No injection or drainage. ENT: Nose without bleeding, purulent drainage or septal hematoma. Throat without erythema, tonsillar hypertrophy or exudate. Uvula midline. Airway patent. NECK: Trachea midline. No JVD or lymphadenopathy. Supple, nontender, no meningeal signs. CARDIOVASCULAR: Regular rate and rhythm without murmurs, gallops, or rubs. RESPIRATORY: Clear to auscultation. Breath sounds equal bilaterally. No wheezes , rales, or rhonchi. GASTROINTESTINAL: Abdomen soft, non-tender, nondistended. No hepato-splenomegaly , or palpable masses. No guarding. MUSCULOSKELETAL: Extremities without clubbing, cyanosis, or edema. No joint tenderness, effusion, or edema noted. No calf tenderness. Negative Homans sign bilaterally. NEUROLOGICAL: Awake and alert. Cranial nerves II through XII intact. Motor and sensory grossly within normal limits. Five out of 5 muscle strength in all muscle groups. Normal speech. Laboratory Laboratory Tests Test 05/05/17 21:20 White Blood Count 11.1 Red Blood Count 3.96 Hemoglobin 12.6 Hematocrit 37.3 Mean Corpuscular Volume 94.1 Mean Corpuscular Hemoglobin 31.8 Mean Corpuscular Hemoglobin Concent 33.8 Red Cell Distribution Width 12.6 Platelet Count 271 Mean Platelet Volume 8.7 Neutrophils (%) (Auto) 70.0 Lymphocytes (%) (Auto) 22.4 Monocytes (%) (Auto) 6.4 Eosinophils (%) (Auto) 0.7 Basophils (%) (Auto) 0.5 Neutrophils # (Auto) 7.8 Lymphocytes # (Auto) 2.5 Monocytes # (Auto) 0.7 Eosinophils # (Auto) 0.1 Basophils # (Auto) 0.1 CBC Comment DIFF FINAL Differential Comment Prothrombin Time 12.0 Prothromb Time International Ratio 1.2 Activated Partial Thromboplast Time 37.9 Blood Urea Nitrogen 24 Creatinine 0.87 Random Glucose 97 Total Protein 8.3 Albumin 3.4 Calcium Level 9.0 Alkaline Phosphatase 132 Aspartate Amino Transf (AST/SGOT) 31 Alanine Aminotransferase (ALT/SGPT) 26 Total Bilirubin 0.2 Sodium Level 137 Potassium Level 4.3 Chloride Level 102 Carbon Dioxide Level 26.8 Anion Gap 8 Estimat Glomerular Filtration Rate 69 Result Diagram: 05/05/17211905/05/172119 Imaging recent lower extremity ultrasound ,CTA thorax Caprini VTE Risk Assessment Caprini VTE Risk Assessment: Mod/High Risk (score >= 2) Caprini Risk Assessment Model Point Value = 1 Point Value = 2 Point Value = 3 Point Value = 5 Age 41-60 Minor surgery BMI > 25 kg/m2 Swollen legs Varicose veins or History of unexplained or recurrent spontaneous Oral contraceptives or hormone replacement Sepsis (< 1 month) Serious lung disease, including pneumonia (< 1 month) Abnormal pulmonary function Acute myocardial infarction Congestive heart failure (< 1 month) History of inflammatory bowel disease Medical patient at bed rest Age 61-74 Arthroscopic surgery Major open surgery (> 45 min) Laparoscopic surgery (> 45 min) Malignancy Confined to bed (> 72 hours) Immobilizing plaster cast Central venous access Age >= 75 History of VTE Family history of VTE Factor V Leiden Prothrombin [id number] Lupus anticoagulant Anticardiolipin antibodies Elevated serum homocysteine Heparin-induced thrombocytopenia Other congenital or acquired thrombophilia Stroke (< 1 month) Elective arthroplasty Hip, pelvis, or leg fracture Acute spinal cord injury (< 1 month) Prophylaxis Regimen Total Risk Factor Score Risk Level Prophylaxis Regimen 0-1 Low Early ambulation 2 Moderate Order ONE of the following: *Sequential Compression Device (SCD) *Heparin 5000 units SQ BID 3-4 Higher Order ONE of the following medications: *Heparin 5000 units SQ TID *Enoxaparin/Lovenox 40 mg SQ daily (WT < 150 kg, CrCl > 30 mL/min) *Enoxaparin/Lovenox 30 mg SQ daily (WT < 150 kg, CrCl > 10-29 mL/min) *Enoxaparin/Lovenox 30 mg SQ BID (WT < 150 kg, CrCl > 30 mL/min) AND/OR *Sequential Compression Device (SCD) 5 or more Highest Order ONE of the following medications: *Heparin 5000 units SQ TID (Preferred with Epidurals) *Enoxaparin/Lovenox 40 mg SQ daily (WT < 150 kg, CrCl > 30 mL/min) *Enoxaparin/Lovenox 30 mg SQ daily (WT < 150 kg, CrCl > 10-29 mL/min) *Enoxaparin/Lovenox 30 mg SQ BID (WT < 150 kg, CrCl > 30 mL/min) AND *Sequential Compression Device (SCD) Assessment and Plan Problem List: (1) Excessive vaginal bleeding ICD Codes: N92.0 - Excessive and frequent menstruation with regular cycle Status: Acute Plan: WIRE TINNER has been notified and will see patient in consult will get pelvic ultrasound (2) Pulmonary embolism ICD Codes: I26.99 - Other pulmonary embolism without acute cor pulmonale Status: Chronic Plan: S/P PE on 04/29/17 continue Xarelto for now may need heme consult as patient having heavy bleeding Assessment and Plan labs are stable will recheck further plan as case develops Code Status full Discussed Condition With patient Victor Hugo Gordon MD May 06, 2017 00:03
[2017-05-06] MEDS ORDERED: ONDANSETRON HCL 4 MG/2 ML VIAL IV PUSH PRN (04:00)
[2017-05-06] MEDS ORDERED: DIATRIZOATE MEGLUM/DIATRIZOATE SOD 9 ML CUP PO ONE ×2 (04:23→04:45)
--- NOTE | 2017-05-06 05:37 | MB ---
cc: CHANELL HERNANDEZ DATE OF CONSULTATION 05/06/2017 HISTORY OF PRESENT ILLNESS The patient is 47 years old, para 1, status post laparoscopic-assisted vaginal hysterectomy on 04/23/2017 with a postoperative pulmonary embolism on 04/30/2017. She presents on 05/05/2017 with vaginal bleeding. She is currently on Xarelto 15 mg p.o. b.i.d. The patient did state that she went and worked at the [employer] this weekend. She followed up with her doctor appointment. She has been using supplemental oxygen as needed. PAST OB HISTORY Significant for one . PAST [employer]IC HISTORY She had heavy menstrual bleeding which was the indication for her laparoscopic hysterectomy. PAST MEDICAL HISTORY She denies diabetes, hypertension or asthma. PAST SURGICAL HISTORY 1. She has had a D&C. 2. . 3. Laminectomy. 4. Breast implants. 5. Laparoscopic-assisted vaginal hysterectomy. SOCIAL HISTORY She denies toxic habits. PHYSICAL EXAMINATION VITAL SIGNS: On physical exam her vital signs are stable. She is afebrile. HEAD, HEART, CHEST, LUNG: Exams are within normal limits. ABDOMEN: Soft, nontender, nondistended. Her laparoscopic incisions are clean, dry and intact. PELVIC EXAM: The patient is passing small clots hourly about the size of a quarter. EXTREMITY EXAM: No edema, cyanosis, clubbing. Nontender calves. ASSESSMENT AND PLAN She is 47 years old, 1, status post laparoscopic-assisted vaginal hysterectomy with a postoperative pulmonary embolism, presents postoperative day 12 with vaginal bleeding on anticoagulation. Her hemoglobin/hematocrit is 12/37, platelets of 271. PT/PTT is 12/37. We will repeat a CBC at 06:[address] of the pelvis with contrast. MD LIBORIO Myers/DIANE /4:20 AM /5:25 AM
[2017-05-06] MEDS ORDERED: LACTATED RINGER'S 1000 ML INJ 1,000 ML IV SCH (05:45)
[2017-05-06 06:17] LABS: AUTOMATED NEUTROPHIL # 8.3 TH/MM3 (1.8-7.7); BASOPHIL # 0.1 TH/MM3 (0-0.2); BASOPHIL % 0.5 % (0.0-2.0); EOSINOPHIL # 0.1 TH/MM3 (0-0.4); EOSINOPHIL % 0.9 % (0.0-4.0); HEMO FLAGS DIFF FINAL; LYMPH % 19.8 % (9.0-44.0); LYMPHOCYTE # 2.3 TH/MM3 (1.0-4.8); MEAN CORPUSCULAR HEMOGLOBIN 32.3 PG (27.0-34.0); MONO % 5.8 % (0.0-8.0); PLATELET COUNT 276 TH/MM3 (150-450); RED BLOOD COUNT 3.68 MIL/MM3 (4.00-5.30); RED CELL DISTRIBUTION WIDTH 12.6 % (11.6-17.2); WHITE BLOOD COUNT 11.4 TH/MM3 (4.0-11.0)
[2017-05-06] MEDS ORDERED: IOHEXOL 350 MG/ML 10 ML VIAL (for RAD DIAG) IVCONTRAST ONE (06:54)
--- NOTE | 2017-05-06 07:02 | RADRPT ---
EXAM DATE/TIME: 05/06/2017 06:51 [facility] COMPARISON: No previous studies available for comparison. INDICATIONS : Vaginal bleeding post hysterectomy. Postoperative pulmonary embolism. IV CONTRAST: 96 cc Omnipaque 350 (iohexol) IV ORAL CONTRAST: Prescribed oral contrast ingested. RADIATION DOSE: 12.75 CTDIvol (mGy) MEDICAL HISTORY : Gastroesophageal reflux disease. Cardiovascular disease SURGICAL HISTORY : section. Hysterectomy. breast augmentation ENCOUNTER: Initial ACUITY: 3 days PAIN SCALE: 3/10 LOCATION: pelvis TECHNIQUE: Volumetric scanning of the pelvis was performed. Using automated exposure control and adjustment of t he mA and/or kV according to patient size, radiation dose was kept as low as reasonably achievable to obtain optimal diagnostic quality images. DICOM format image data is available electronically for review and comparison. FINDINGS: BOWEL/MESENTERY: The visualized small and large bowel demonstrate no acute abnormality. There is no free fluid. BLADDER: There is no wall thickening or mass. RETROPERITONEUM: There is no aneurysm or lymphadenopathy. REPRODUCTIVE: The patient is status post hysterectomy with apparent post surgical changes in the pelvis. There is a small amount of gas and fluid present posterior to the bladder. INGUINAL: There is no lymphadenopathy or hernia. MUSCULOSKELETAL: Within normal limits for patient age. CONCLUSION: Small amount of gas and fluid in the lower pelvis most consistent with postoperative change from recent hysterectomy. Agustin Campos MD on May 06, 2017 at 6:58 Board Certified Radiologist. This report was verified electronically.
[2017-05-06] MEDS: DOCUSATE SODIUM 100 MG CAP PO SCH ×2 (09:00→21:00)
[2017-05-06] MEDS: ONDANSETRON HCL 4 MG/2 ML VIAL IV PUSH PRN ×2 (09:07→16:52)
[2017-05-06] MEDS: RIVAROXABAN 15 MG TAB PO SCH ×2 (10:33→11:19)
[2017-05-06] MEDS: PANTOPRAZOLE SOD 20 MG DELAYED RELEASE TAB PO SCH ×2 (10:34→11:19)
--- NOTE | 2017-05-06 11:29 | HHI.PR ---
Subjective Remarks Pt c/o severe nausea and vomiting. Some improvement with zofran. Pt also with copious diarrhea observe by nursing. Objective Vitals Vital Signs Date Time Temp Pulse Resp B/P (MAP) Pulse Ox O2 Delivery O2 Flow Rate FiO2 05/06/17 09:00 97.3 78 16 111/66 (81) 99 05/06/17 05:16 96 21 05/06/17 04:45 98.2 88 18 119/72 (88) 96 05/06/17 01:36 16 05/06/17 01:00 Nasal Cannula 2.00 05/06/17 00:21 98.7 102 18 132/75 (94) 98 05/06/17 00:06 05/05/17 23:36 89 18 137/78 (97) 98 Room Air 05/05/17 21:10 77 24 100 Nasal Cannula 2.00 05/05/17 19:18 98.9 88 16 150/94 (112) 98 Result Diagram: 05/06/17 0551 05/05/172119 Imaging recent lower extremity ultrasound ,CTA thorax Last Impressions Pelvis CT 05/06/17 0000 Signed Impressions: Service Date/Time: Saturday, May 06, 2017 06:51 - CONCLUSION: Small amount of gas and fluid in the lower pelvis most consistent with postoperative change from recent hysterectomy. Agustin Campos MD Objective Remarks GENERAL: This is a well-nourished, well-developed patient, in no apparent distress. CARDIOVASCULAR: Regular rate and rhythm without murmurs, gallops, or rubs. RESPIRATORY: Clear to auscultation. Breath sounds equal bilaterally. No wheezes , rales, or rhonchi. GASTROINTESTINAL: Abdomen soft, non-tender, nondistended. Normal active bowel sounds MUSCULOSKELETAL: Extremities without clubbing, cyanosis, or edema. NEURO: Alert & Oriented x4 to person, place, time, situation. Moves all ext x4 A/P Problem List: (1) Excessive vaginal bleeding ICD Codes: N92.0 - Excessive and frequent menstruation with regular cycle Status: Acute Plan: - CT pelvis (05/06/17) --> post operative changes - Case d/w Dr. Ibarra (05/06) - from case management manager perspective pt stable for discharge - f/u with case management manager outpt - pt strongly advised to rest and avoid strenuous activity. Pt worked at the [employer] this past weekend - Hg stable, 12.6 (05/05), 11.9 (05/06) - pt receiving IVFs - post operative PE - continue xarelto - supportive care (2) Pulmonary embolism ICD Codes: I26.99 - Other pulmonary embolism without acute cor pulmonale Status: Chronic Plan: - S/P PE on 04/29/17 - continue Xarelto - Case d/w Dr. Crawford, Hematology. - Consultation cancelled. Okay for pt to f/u with Hematology outpt & continue on xarelto (3) Diarrhea ICD Codes: R19.7 - Diarrhea, unspecified Status: Acute Plan: - continue IVFs - nausea improved with zofran - obtain stool studies including C. Dif - anticipate d/c to home in next 1-2 days Problem Qualifiers (1) Pulmonary embolism: Qualified Codes: I26.99 - Other pulmonary embolism without acute cor pulmonale (2) Diarrhea: Qualified Codes: R19.7 - Diarrhea, unspecified William Ortiz DO May 06, 2017 11:29
[2017-05-06] MEDS: 1/2 NS + KCL 20 MEQ INJ 1,000 ML IV SCH (13:02)
[2017-05-07] MEDS: 1/2 NS + KCL 20 MEQ INJ 1,000 ML IV SCH (02:21)
[2017-05-07 06:54] LABS: AUTOMATED NEUTROPHIL # 4.6 TH/MM3 (1.8-7.7); BASOPHIL % 0.6 % (0.0-2.0); EOSINOPHIL # 0.1 TH/MM3 (0-0.4); EOSINOPHIL % 1.6 % (0.0-4.0); HEMATOCRIT 33.6 % (35.0-46.0); HEMO FLAGS DIFF FINAL; LYMPH % 32.8 % (9.0-44.0); LYMPHOCYTE # 2.6 TH/MM3 (1.0-4.8); MEAN CELL VOLUME 94.5 FL (80.0-100.0); MEAN CORPUSCULAR HGB CONC 33.9 % (32.0-36.0); MONO % 5.9 % (0.0-8.0); NEUT % 59.1 % (16.0-70.0); PLATELET COUNT 261 TH/MM3 (150-450); RED BLOOD COUNT 3.56 MIL/MM3 (4.00-5.30); RED CELL DISTRIBUTION WIDTH 12.6 % (11.6-17.2); WHITE BLOOD COUNT 7.8 TH/MM3 (4.0-11.0)
[2017-05-07 07:21] LABS: BICARBONATE 27.8 MEQ/L (21.0-32.0); MAGNESIUM 2.5 MG/DL (1.5-2.5); POTASSIUM 3.9 MEQ/L (3.5-5.1)
[2017-05-07] MEDS: DOCUSATE SODIUM 100 MG CAP PO SCH (09:00)
[2017-05-07 09:05] VITALS: BP 116/73; PULSE 81; RESP 16; TEMP 97.8; O2SAT 99
--- NOTE | 2017-05-07 11:01 | HHI.PR ---
Subjective Remarks Doing well, pain is well controlled, eating better today, bleeding scant on pad Objective Vital Signs Vital Signs Date Time Temp Pulse Resp B/P (MAP) Pulse Ox O2 Delivery O2 Flow Rate FiO2 05/07/17 09:05 97.8 81 16 116/73 (87) 99 05/06/17 21:13 98.3 90 16 119/68 (85) 100 05/06/17 20:00 98 05/06/17 16:57 98.7 77 18 132/81 (98) 96 05/06/17 11:47 97.8 91 16 124/66 (85) 100 I/O 05/06/17 05/06/17 05/06/17 05/07/17 05/07/17 05/07/17 06:59 14:59 22:59 06:59 14:59 22:59 Intake Total 140 ml Balance 140 ml Intake Oral 140 ml # Sanitary Pads 2 Pads 1 Pads 1 Pads Result Diagram: 05/07/17 0610 05/07/17 0610 Objective Remarks Chest is clear, regular rate and rhythm. Abdomen is soft and non-distended. Incisions are clean and dry. Ext no CCE. A/P Assessment and Plan Post Op Day 14 Doing well Home today and return to office saturday bedrest with BRP . Nicole Ibarra MD May 07, 2017 11:01
[2017-05-07 11:20] VITALS: BP 105/98; PULSE 77; RESP 16; TEMP 98.2; O2SAT 98
[2017-05-07] MEDS: PANTOPRAZOLE SOD 20 MG DELAYED RELEASE TAB PO SCH (11:28)
[2017-05-07] MEDS: RIVAROXABAN 15 MG TAB PO SCH (11:29)
[2017-05-07] MEDS ORDERED: XARE20TA PO (12:11)
--- NOTE | 2017-05-07 12:28 | HHI.PR ---
Subjective Remarks Pt feeling much better. Pt is tolerating PO intake. No n/v/d. Objective Vitals Vital Signs Date Time Temp Pulse Resp B/P (MAP) Pulse Ox O2 Delivery O2 Flow Rate FiO2 05/07/17 11:20 98.2 77 16 105/98 (100) 98 05/07/17 09:05 97.8 81 16 116/73 (87) 99 05/06/17 21:13 98.3 90 16 119/68 (85) 100 05/06/17 20:00 98 05/06/17 16:57 98.7 77 18 132/81 (98) 96 Result Diagram: 05/07/17 0610 05/07/17 0610 Imaging recent lower extremity ultrasound ,CTA thorax Last Impressions Pelvis CT 05/06/17 0000 Signed Impressions: Service Date/Time: Saturday, May 06, 2017 06:51 - CONCLUSION: Small amount of gas and fluid in the lower pelvis most consistent with postoperative change from recent hysterectomy. Agustin Campos MD Objective Remarks GENERAL: This is a well-nourished, well-developed patient, in no apparent distress. CARDIOVASCULAR: Regular rate and rhythm without murmurs, gallops, or rubs. RESPIRATORY: Clear to auscultation. Breath sounds equal bilaterally. No wheezes , rales, or rhonchi. GASTROINTESTINAL: Abdomen soft, non-tender, nondistended. Normal active bowel sounds MUSCULOSKELETAL: Extremities without clubbing, cyanosis, or edema. NEURO: Alert & Oriented x4 to person, place, time, situation. Moves all ext x4 A/P Problem List: (1) Excessive vaginal bleeding ICD Codes: N92.0 - Excessive and frequent menstruation with regular cycle Status: Acute Plan: - CT pelvis (05/06/17) --> post operative changes - Case d/w Dr. Ibarra (05/06) - from senior loan officer perspective pt stable for discharge - f/u with senior loan officer outpt - pt strongly advised to rest and avoid strenuous activity. Pt worked at the [employer] this past weekend - Hg stable, 12.6 (05/05), 11.9 (05/06), 11.4 (05/07) - post operative PE - case d/w Dr. Crawford (05/07). Change xarelto to 20mg daily - f/u with Dr. Ibarra in 1 week - f/u with Dr. Crawford in 3 weeds - see discharge orders (2) Pulmonary embolism ICD Codes: I26.99 - Other pulmonary embolism without acute cor pulmonale Status: Chronic Plan: - S/P PE on 04/29/17 - see above (3) Diarrhea ICD Codes: R19.7 - Diarrhea, unspecified Status: Acute Plan: - pt received IVFs - n/v/d resolved Problem Qualifiers (1) Pulmonary embolism: Qualified Codes: I26.99 - Other pulmonary embolism without acute cor pulmonale (2) Diarrhea: Qualified Codes: R19.7 - Diarrhea, unspecified William Ortiz DO May 07, 2017 12:28
--- NOTE | 2017-05-07 19:10 | MB ---
cc: JOSEPH LORENZO DATE OF CONSULTATION 05/07/17 REASON FOR CONSULTATION Consult requested by Dr. Ibarra for evaluation of vaginal bleeding in a patient who is on Xarelto for postoperative pulmonary embolism. HISTORY OF PRESENT ILLNESS Jose is a 47-year-old female. She has a history of menorrhagia. This was refractory to the medications. She underwent laparoscopic vaginal hysterectomy on April 23. She tolerated the surgery well. According to the patient, after the surgery she had some oozing of blood through the vagina. Three days after the surgery, she started having cough and shortness of breath. This was gradually getting worse and finally she decided to come to the emergency room. She was diagnosed with a pulmonary embolism on April 29. The pulmonary embolism was isolated to the right lower lobe pulmonary artery. She was started on Xarelto 15 mg twice a day. The ultrasound of the lower leg was negative for DVT. She was discharged to home. The patient came into the emergency room yesterday complaining of severe vaginal bleeding. She stated she was passing clots. She was admitted to the hospital. VENEER LATHE OPERATOR was consulted. Dr. Ibarra saw the patient and recommended hematology consult for further evaluation of the bleeding. The patient had a pelvic CT which showed a small amount of gas and fluid in the lower pelvis most consistent with postoperative change from recent hysterectomy. The patient is still in the emergency room. She was supposed to be discharged yesterday, but due to the nausea and vomiting the discharge was held. I am seeing the patient in the emergency room. The patient states that her vaginal bleeding has subsided remarkably. She stated that she only been taking Xarelto 15 mg once a day. The second dose has been missed since she has been in the hospital. With that, she noticed that the vaginal bleeding has subsided. She was using three to four pads every hour and now she states that she has one pad for the last six hours and does not require it to be changed. She is anxious to go home. She was advised not to resume work, but she was working at the [employer] over the weekend. She does not have any cough or shortness of breath or pleuritic chest pain. She stated that these symptoms have resolved since she has been on Xarelto. REVIEW OF SYSTEMS The patient denies any previous history of thromboembolic disease. She denies any family history of thromboembolic disease or any bleeding disorder. The rest of the review of systems is negative. PAST MEDICAL HISTORY 1. Menorrhagia 2. Anxiety disorder, 3. Hyperlipidemia, 4. Gastroesophageal reflux disease 5. Recent provoked pulmonary embolism. PAST SURGICAL HISTORY 1. Back surgery, 2. 3. Breast augmentation 4. Dilation and curettage ALLERGIES CODEINE MEDICATIONS 1. Xarelto 15 mg twice a day 2. Hydrocodone. 3. Xanax. FAMILY HISTORY No family history of thromboembolic disease or any malignancy or coagulopathy. SOCIAL HISTORY The patient does not smoke cigarettes, does not drink alcohol. PHYSICAL EXAMINATION GENERAL: A well-developed, well-nourished white female in no apparent distress. VITAL SIGNS: Temperature 97.8, heart rate is 81, blood pressure 116/73, O2 saturation 99%. HEENT: PERRLA, EOMI, anicteric. No oral lesions are noted. NECK: No lymphadenopathy noted. LUNGS: Clear. No wheezing, rhonchi or rales. HEART: Regular rate and rhythm. ABDOMEN: Soft, nontender. No hepatosplenomegaly. EXTREMITIES: No pedal edema. NEUROLOGIC: Awake, alert, oriented times threes SKIN: No significant lesions noted. ASSESSMENT 1. Provoked pulmonary embolism after laparoscopic hysterectomy 2. Severe vaginal bleeding most likely from vaginal cuff since she has been on Xarelto. 3. No previous personal or family history of thromboembolic disease. PLAN I have reviewed her available records and I have discussed with the patient regarding the vaginal bleeding. She stated that after the surgery she had some oozing which lasted for several days. However when she was started on Xarelto for pulmonary embolism, she noticed more vaginal bleeding. Over the weekend when she went back to work she noticed severe vaginal bleeding. She was using lots of pads, three to four pads every hour, until she came to the emergency room. However, now the patient states that her bleeding has subsided considerably and the bleeding is very slight. She noticed that she has been getting Xarelto only once a day 15 mg. She stated that for some reason she has not been getting twice a day since she has been in the hospital which has probably improved the bleeding. Therefore, my recommendation is to discharge her on Xarelto 20 mg once a day instead of 15 mg twice a day. I reviewed the CT angiogram of the chest and her clot burden is minimal. Therefore, I think she will be okay with the Xarelto 20 mg daily. Also, the patient needs to follow up with her ship's cook to see where she is bleeding from the vaginal cuff. If the bleeding spot is localized then this could be cauterized to stop the bleeding.. The patient agreed with the plan. She stated that she does have a follow-up appointment with her ship's cook this coming . I have discussed the case with the admitting physician, Dr. Ortiz. From my standpoint, the patient could be discharged to home and can be followed as an outpatient. Thank you for asking my opinion. MD ANGIE Santos/ /6:19 PM /6:45 PM MTDD
== END 2017-05-07 15:05 | disposition home or self-care (01) ==
LOC: NEPD 19:15 → NEDA 22:41 → NEPGCP 05-06 00:05
PROVIDERS: ADMIT Hospitalist; ATTEND Hospitalist
DX: N92.0 Excessive and frequent menstruation with regular cycle (principal); R06.02 Shortness of breath; R53.1 Weakness; R53.83 Other fatigue; R26.81 Unsteadiness on feet; R11.2 Nausea with vomiting, unspecified; R19.7 Diarrhea, unspecified; E78.00 Pure hypercholesterolemia, unspecified; K21.9 Gastro-esophageal reflux disease without esophagitis; F41.9 Anxiety disorder, unspecified; Z86.711 Personal history of pulmonary embolism; Z98.890 Other specified postprocedural states; Z98.82 Breast implant status
CPT/HCPCS: 72193; 80048; 80053; 83735; 85025; 85610; 85730; 86850; 86900; 86901; 96361; 96365; 96366; 96375; 99285; G0378; J2405; J7120; Q9963; Q9967

== ENCOUNTER → 2017-05-10 | Day surgery (SDC) | payer OTHER ==
[~2017-05-10] MED LIST changes: +APREPITANT 40 MG CAP ONE; +MIDAZOLAM HCL 2 MG/2 ML VIAL ONE; +ONDANSETRON HCL 4 MG/2 ML VIAL IV PUSH ONE; -OXYGENDME NAS.CANULA; +PROPOFOL 200 MG/20 ML AMP IV ONE; -XARE15TA PO; +ceFAZolin INJ 1,000 MG VIAL ONE; +oxyCODONE/ACETAMINOPHEN 5 MG/325 MG TAB ONE
--- NOTE | 2017-05-10 13:34 | MP ---
cc: CHANELL IBARRA DATE OF SURGERY 05/10/2017 PREOPERATIVE DIAGNOSIS Vaginal cuff dehiscence. POSTOPERATIVE DIAGNOSIS Vaginal cuff dehiscence. PROCEDURE Examination under anesthesia, oversewing of the vaginal cuff dehiscence. SURGEON Dr. Ibarra ANESTHESIA General. ESTIMATED BLOOD LOSS Less than 50 cc. URINE OUTPUT ON STRAIGHT CATH 75 cc. FINDINGS A 2-3 cm area of vaginal cuff dehiscence was noted. Minimal bleeding was noted. PROCEDURES The patient was taken to the operating room where general anesthesia was found to be adequate. She was then prepped and draped in the normal sterile fashion in the dorsal lithotomy position. The urinary bladder was emptied of urine using straight catheterization. Weighted speculum was placed in the vagina and anterior vaginal retractor was placed. An Allis was placed on the left side of the vaginal cuff dehiscence. A running suture of 0 Vicryl was placed to reapproximate the area of dehiscence. The suture was tied. Hemostasis was assured. All the instruments were removed from the vagina. Sponge, lap, needle and instrument counts were correct. The patient was awakened from anesthesia and transferred to the recovery room in stable condition. MD LIBORIO Myers/DIANE /12:53 PM /1:28 PM
== END | disposition home or self-care (01) ==
LOC: ESDC 11:29
PROVIDERS: ATTEND Obstetrics & Gynecology
DX: N99.820 Postprocedural hemorrhage of a genitourinary system organ or structure following a genitourinary system procedure (principal); T81.32XA Disruption of internal operation (surgical) wound, not elsewhere classified, initial encounter
CPT/HCPCS: 00940; 58999; J0690; J2250; J2405; J3010; J8501